=== PATIENT | female | born 1995 | race American Indian/Alaskan Native ===

== ENCOUNTER 2017-10-24 12:36 | Emergency (ER) | payer MEDICAID ==
[2017-10-24 15:12] LABS: Bacteria,Urine 1+ /HPF (Negative); Bilirubin,Urine NEG (Negative); Blood,Urine SM (Negative); Color,Urine Yellow (Yellow); Mucus,Urine 2+ /HPF; Nitrite,Urine NEG (Negative); Urobilinogen,Urine < 2.0 mg/dL (<2.0)
--- NOTE | 2017-10-24 16:09 | Emergency Department Report ---
ED Female HPI - General Chief complaint: Urogenital-Female Stated complaint: OUTBREAK ON PRIVATE Time Seen by Provider: 10/24/17 16:00 Source: patient, family Mode of arrival: Ambulatory Limitations: No Limitations - History of Present Illness Initial comments: Patient here reports that she woke up this morning with redness and inflammation to her vaginal area. States rash and itching. States that she had unprotected sex and she is worried about STD. Denies any vaginal discharge but reports that she has urinary burning in and frequency. Denies any abdominal or back pain. Denies any nausea or vomiting. Denies any vaginal bleeding. Denies any fever or chills. MD Complaint: dysuria, possible STD -: This morning Severity scale (0 -10): 0 Quality: crushing Worsens with: intercourse Are you Now?: No Associated Symptoms: dysuria. denies: vaginal discharge, vaginal bleeding, abdominal pain, nausea/vomiting, fever/chills, headaches, loss of appetite, hematuria, rash, shortness of breath, syncope, weakness - Related Data Sexually active: Yes Previous Rx's Medication Instructions Recorded Last Taken Type Nitrofurantoin Monohyd/M-Cryst 100 mg PO Q12H 7 Days #14 capsule 10/24/17 Unknown Rx [Macrobid 100 mg Capsule] Nystatin Cream [Mycostatin Cream] 1 applic TP BID 7 Days #1 tube 10/24/17 Unknown Rx metroNIDAZOLE [Flagyl] 500 mg PO Q12HR 7 Days #14 tab 10/24/17 Unknown Rx Allergies Allergy/AdvReac Type Severity Reaction Status Date / Time No Known Allergies Allergy Unverified 10/24/17 13:10 ED Review of Systems ROS: Stated complaint: OUTBREAK ON PRIVATE Other details as noted in HPI Comment: All other systems reviewed and negative Constitutional: no symptoms reported ENT: denies: throat pain Respiratory: no symptoms reported Cardiovascular: denies: chest pain, palpitations, dyspnea on exertion, edema, syncope, paroxysmal nocturnal dyspnea Gastrointestinal: denies: abdominal pain, nausea, vomiting, diarrhea, constipation, hematemesis, melena, hematochezia Genitourinary: dysuria, frequency. denies: urgency, hematuria, discharge Musculoskeletal: denies: back pain, joint swelling, arthralgia, myalgia Skin: rash Neurological: denies: headache, weakness, numbness, paresthesias, confusion, abnormal gait, vertigo ED Past Medical Hx - Past Medical History Previous Medical History?: No - Surgical History Past Surgical History?: No - Family History Family history: hypertension - Social History Smoking Status: Never Smoker Substance Use Type: Alcohol - Medications Home Medications: Home Medications Medication Instructions Recorded Confirmed Last Taken Type Nitrofurantoin Monohyd/M-Cryst 100 mg PO Q12H 7 Days #14 capsule 10/24/17 Unknown Rx [Macrobid 100 mg Capsule] Nystatin Cream [Mycostatin Cream] 1 applic TP BID 7 Days #1 tube 10/24/17 Unknown Rx metroNIDAZOLE [Flagyl] 500 mg PO Q12HR 7 Days #14 tab 10/24/17 Unknown Rx ED Physical Exam - General Limitations: No Limitations General appearance: alert, in no apparent distress - Head Head exam: Present: atraumatic, normocephalic, normal inspection - Eye Eye exam: Present: normal appearance, PERRL, EOMI Pupils: Present: normal accommodation - ENT ENT exam: Present: normal exam, normal orophraynx, mucous membranes moist - Neck Neck exam: Present: normal inspection, full ROM. Absent: tenderness, meningismus, lymphadenopathy, thyromegaly - Respiratory Respiratory exam: Present: normal lung sounds bilaterally. Absent: respiratory distress, chest wall tenderness - Cardiovascular Cardiovascular Exam: Present: regular rate, normal rhythm, normal heart sounds. Absent: systolic murmur, diastolic murmur - GI/Abdominal GI/Abdominal exam: Present: soft, normal bowel sounds. Absent: distended, tenderness, guarding, rebound, rigid, organomegaly, mass, bruit, pulsatile mass - External exam: Present: erythema. Absent: normal external exam, swelling, lesions, lacerations, ecchymosis, bleeding Speculum exam: Present: vaginal discharge, cervical discharge, vaginal bleeding. Absent: normal speculum exam, erythema, foreign body, tissue, laceration Bi-manual exam: Present: normal bi-manual exam - Extremities Exam Extremities exam: Present: normal inspection, full ROM, normal capillary refill , other (No clubbing, Cyanosis or edema. no neurovascular compromise). Absent: tenderness, pedal edema, joint swelling, calf tenderness - Back Exam Back exam: Present: normal inspection, full ROM. Absent: tenderness, CVA tenderness (R), CVA tenderness (L), muscle spasm, paraspinal tenderness, vertebral tenderness, rash noted - Neurological Exam Neurological exam: Present: alert, oriented X3, normal gait - Psychiatric Psychiatric exam: Present: normal affect, normal mood - Skin Skin exam: Present: warm, dry, intact, normal color. Absent: rash ED Course Vital Signs 10/24/17 10/24/17 13:10 18:16 Temperature 99.1 F 98.8 F Pulse Rate 87 90 Respiratory 18 18 Rate Blood Pressure 124/74 118/77 O2 Sat by Pulse 100 100 Oximetry - Reevaluation(s) Reevaluation #1: 10/24/17 17:50 Patient treated for gonorrhea and chlamydia. Negative Trichomonas but few polymorphonuclear cell. Positive clue cells. Patient treated with Rocephin 1 g IM and Zithromax 1 g by mouth in emergency room. This will cover her for gonorrhea and chlamydia and partially for urinary tract infection ED Medical Decision Making - Lab Data Lab Results 10/24/17 Range/Units Unknown Urine Color Yellow (Yellow) Urine Turbidity Clear (Clear) Urine pH 5.0 (5.0-7.0) Ur Specific [place] 1.027 (1.003-1.030) Urine Protein 30 mg/dl (Negative) mg/dL Urine Glucose (UA) Neg (Negative) mg/dL Urine Ketones Neg (Negative) mg/dL Urine Blood Sm (Negative) Urine Nitrite Neg (Negative) Urine Bilirubin Neg (Negative) Urine Urobilinogen < 2.0 (<2.0) mg/dL Ur Leukocyte Esterase Lg (Negative) Urine WBC (Auto) 10.0 H (0.0-6.0) /HPF Urine RBC (Auto) 6.0 (0.0-6.0) /HPF U Epithel Cells (Auto) 18.0 H (0-13.0) /HPF Urine Bacteria (Auto) 1+ (Negative) /HPF Urine Mucus 2+ /HPF Wet prep positive clue cell, negative trichomoniasis and yeast. Many polymorphonuclear cell. GC and chlamydia pending Urine culture pending - Medical Decision Making ED course: I discussed results of urinalysis with patient. I also discussed her wet prep which is positive for many polymorphonuclear cell, positive for BV and negative for Trichomonas and yeast. I discussed with her that she should go ahead and get treated for gonorrhea and chlamydia due to the presence of polymorphonuclear cell on her wet prep culture. I also discussed with her that she has a urinary tract infection. Gonorrhea and chlamydia tests sent and pending a urine culture sent and pending. Pelvic examination showed patient with small amount of blood in vaginal vault and patient said she is just starting to have her period. Patient also with vulvovaginitis with erythema to the vaginal area externally. I discussed the patient that she should let her partner know that she was treated for STD and emergency room and here she can go to [facility] for STD testing and I also told her that she can go ahead and go to [facility] in 7-10 days for repeat testing and we will call her with results of gonorrhea and chlamydia tests. Patient voiced understanding of discharge diagnoses, treatment plan and she agreed to be treated for STD and emergency room. Patient given Rocephin 1 g IM and azithromycin 1 g by mouth. She had no adverse reaction from medication. Discharged home with prescription for Flagyl, Macrobid and nystatin cream. Critical care attestation.: If time is entered above; I have spent that time in minutes in the direct care of this critically ill patient, excluding procedure time. ED Disposition Clinical Impression: Vulvovaginitis, Bacterial vaginosis, Acute cystitis with hematuria, Concern about STD in female without diagnosis, Vaginal discharge, Dysuria Disposition: - TO HOME OR SELFCARE Is pt being admited?: No Does the pt Need Aspirin: No Condition: Stable Instructions: Bacterial Vaginosis (ED), Sexually Transmitted Diseases (ED), Safe Sex (ED), Urinary Tract Infection in Women (ED), Vulvovaginal Candidiasis ( ED), Dysuria (ED) Additional Instructions: Please practice safe sex Follow-up with your your primary care physician or if he do not have one follow- up with outside Medical Center in 2-3 days. Follow-up with [facility] in 7-10 days for repeat STD testing Your partner know that you were treated for STD and emergency room and that here she will need to get checked Were treated for gonorrhea and chlamydia in emergency room today. You have yeast vaginitis on outer vaginal area and also bacterial vaginosis. Please use nystatin cream for yeast and Flagyl for bacterial vaginosis You have a urinary tract infection and will be treated with Macrobid for 7 days. Please do not have any sexual activity for the next 2 weeks. Prescriptions: metroNIDAZOLE [Flagyl] 500 mg PO Q12HR 7 Days #14 tab Nitrofurantoin Monohyd/M-Cryst [Macrobid 100 mg Capsule] 100 mg PO Q12H 7 Days # 14 capsule Nystatin Cream [Mycostatin Cream] 1 applic TP BID 7 Days #1 tube Referrals: PRIMARY CARE,MD [Primary Care Provider] - 3-5 Days Forms: STI Treatment and Prevention, Work/School Release Form(ED)
[2017-10-24] MEDS ORDERED: ROCEPHIN IM STA (17:51)
[2017-10-24] MEDS ORDERED: ZITHROMAX PO ONE (17:52)
[2017-10-24] MEDS ORDERED: XYLOCAINE 1% MPF 5 mL INFILTRATI ONE (17:52)
[2017-10-24 18:14] LABS: HCG Qualitative,Urine Negative (Negative)
[2017-10-24 18:23] VITALS: BP 118/77
== END 2017-10-24 18:23 | disposition home or self-care (01) ==
LOC: ED 12:36
DX: N76.0 Acute vaginitis (principal); N89.8 Other specified noninflammatory disorders of vagina; R30.0 Dysuria; N30.01 Acute cystitis with hematuria
CPT/HCPCS: 81001; 81025; 87086; 87210; 87591; 96372; 99284; J0696